=== PATIENT | female | born 1955 | race Caucasian/White ===

== ENCOUNTER 2025-04-08 10:02 | Day surgery (SDC) | payer MEDICARE ==
[~2025-04-08] VITALS: Ht 147.3 cm; Wt 67.0 kg
[~2025-04-08 10:02] MED LIST: BENADRYL25 MG PO; CALCIUM-MAGNES1 EA10 PO; CALCIUM500 MG PO; CEFAZOLIN SODIUM 2 GM/20 ML SYR IV SCH; CELEBREX200 MG PO; CITRUCEL POWDE454 GM PO; IBLOOD GLUCOSE TEST STRIP 1 EA TEST VI PRN; LACTATED RINGER'S 1,000 ML IV SCH; LIDOCAINE HCL 1% 5 ML SDV INJ ONE; LORATADINE10 MG PO; MULTIVITAMINS1 EAC8 PO; OMEPRAZOLE20 MG PO
[2025-04-08 10:17] VITALS: BP 118/58
[2025-04-08] MEDS ORDERED: LIDOCAINE HCL 2% 5 ML SDV ONE (10:31)
--- NOTE | 2025-04-08 11:39 | NUR ---
04/08/[address] PRESENTS TO PATIENT'S BEDSIDE AND HE IS SPEAKING WITH HER. HER QUESTIONS ARE ANSWERED. OXYGEN SATURATION REMAINS 100% ON 6L VIA MASK. PATIENT FOLLOWS INSTRUCTIONS TO LIFT HEAD FROM PILLOW. OXYGEN MASK IS REMOVED AND OXYGEN IS DISCONTINUED.
[2025-04-08 12:01] VITALS: BP 124/62
--- NOTE | 2025-04-09 13:47 | OR ---
[facility] [address], [place] [address] Signed DATE OF OPERATION: 04/08/2025 SURGEON: Mac Jacobo MD PREOPERATIVE DIAGNOSIS: Colon surveillance. Last colonoscopy 2018, normal; polyps x2, 2007. POSTOPERATIVE DIAGNOSES: Hyperplastic appearing polyp of sigmoid and flat adenomatous polyp of cecum. PROCEDURES: Total colonoscopy to cecum with cold snare polypectomy x1 and cold morcellation polypectomy x1. ANESTHESIA: Intravenous sedation, propofol, Alvaro Price, FOOD COOKING MACHINE OPERATOR. INDICATION: This 69-year-old white woman is a patient of Dr. Kia Oliva of [place], [place] and last underwent colonoscopy in 2018, seven years ago and noted to have no findings at that time. The previous colonoscopy included polyps x2 in 2006, a normal colonoscopy in 2008. She had an underlying history of progressive ankylosing spondylitis. A hyperplastic polyp was noted in 2018 of the rectum. She has no current symptoms of bleeding, diarrhea, or constipation. She is now to undergo surveillance colonoscopy, understanding the risk of bleeding, infection, and perforation. FINDINGS: The prep was good. Complete colonoscopy was undertaken of the cecum without question. Preoperative antibiotic Ancef had been given. Complete colonoscopy was undertaken of the cecum with full intubation of the cecum. There was a small flat polyp of the cecum, which was subtle, but real and almost certainly adenomatous. It was excised completely with cold snare technique. There is another small polyp in the sigmoid, which is likely hyperplastic. Remaining colon otherwise was normal. DESCRIPTION OF PROCEDURE: The patient was brought to the endoscopy suite, placed in lateral decubitus position. She was given preoperative antibiotic Ancef based on joint replacement history. Intravenous sedation was induced with propofol infusional technique with full cardiopulmonary monitoring by the school psychologist. Digital rectal examination was normal. Electronically Signed By: MAC JACOBO MD 04/09/25 1347 PATIENT NAME: ANSUHL ZAMUDIO OPERATIVE REPORT DATE OF : 57 REPORT #: [id number] PHYSICIAN: MAC JACOBO MD PCP: KIA OLIVA PA-C REPORT IS CONFIDENTIAL AND NOT TO BE RELEASED WITHOUT AUTHORIZATION [facility] [address], [place] [address] Signed An Olympus video colonoscope was passed in the rectum and manipulated throughout the colon ultimately intubating the cecum itself. The appendiceal orifice and ileocecal valve was normal. There was a small rather subtle flat polyp of the cecum, which was more easily visualized with narrow band imaging. This was excised with cold snare technique and additional biopsies with cold morcellation technique. Withdrawal of the scope from that point showed no sign of other abnormality until the sigmoid where a small hyperplastic polyp was noted, which was excised with cold morcellation technique. Further withdrawal allowed for retroflexed view of the rectum, which was normal. The scope was removed. The patient was taken to the recovery room in good condition. CONCLUDING DIAGNOSIS: Polyps x2. PLAN: Recommend repeat colonoscopy in 7-10 years based on current guidelines. She will return to the ongoing care of Kia Oliva or person assuming that practice patient population. MD KENTON Cope/GILDA /[id number] cc: Kia Oliva PA-C Copies: ~ Electronically Signed By: MAC JACOBO MD 04/09/25 1347 PATIENT NAME: ANSHUL ZAMUDIO OPERATIVE REPORT DATE OF : 57 REPORT #: [id number] PHYSICIAN: MAC JACOBO MD PCP: KIA OLIVA PA-C REPORT IS CONFIDENTIAL AND NOT TO BE RELEASED WITHOUT AUTHORIZATION
--- NOTE | 2025-04-11 08:10 | PATH ---
[facility] [address] [place], [place] [address] Signed SPECIMEN(S): A CECUM POLYP SPECIMEN(S): B SIGMOID POLYP SPECIMEN SOURCE: A. CECUM POLYP B. SIGMOID POLYP CLINICAL HISTORY: History of colon polyps. Post-polyp x 2 A/B) polyp FINAL PATHOLOGIC DIAGNOSIS: A. Cecal polyp: - Sessile serrated adenoma. - No dysplasia or malignancy identified. B. Sigmoid colon polyp: - Sessile serrated adenoma. - No dysplasia or malignancy identified. [facility] MICROSCOPIC EXAMINATION: Histologic sections of all submitted blocks are examined by light microscopy. These findings, together with the gross examination, support the pathologic diagnosis. GROSS DESCRIPTION: A. The specimen, labeled and designated "Tank, cecum polyp," is received in formalin and consists of four gutierrez soft tissue fragments, ranging from 0.1-0.6 cm. Entirely submitted in (A1). B. The specimen, labeled and designated "Tank, sigmoid polyp," is received in formalin and consists of three gutierrez soft tissue fragments, ranging from 0.1-0.3 cm. Entirely submitted in (B1). AB (under the direct supervision of a pathologist) The Gross Description was prepared using a voice recognition system. The report was reviewed for accuracy; however, sound-alike word errors, addition and/or deletions may occur. If there is any question about this report, please contact Client Services. ADDITIONAL NOTES: Immunohistochemical and/or in situ hybridization studies if performed in this case included appropriate positive controls that reacted as expected. This PATIENT NAME: ANSHUL ZAMUDIO PATHOLOGY DATE OF : 57 REPORT #: [id number] PHYSICIAN: KHOI ROJAS PCP: KIA OLIVA PA-C REPORT IS CONFIDENTIAL AND NOT TO BE RELEASED WITHOUT AUTHORIZATION [address] [address] Signed test was developed and its performance characteristics determined by [facility]. It has not been cleared or approved by the U.S. Food and Drug Administration. The FDA has determined that such clearance or approval is not necessary. This test is used for clinical purposes. It should not be regarded as investigational or for research. [facility] is certified under the Clinical Laboratory Improvement Amendments of 1988 (CLIA) as qualified to perform high complexity clinical laboratory testing. PERFORMING LABORATORY: Technical component was performed by [facility], [address] [place] [id number] (CLIA# [id number]). Professional interpretation was performed by [facility] - [facility], [address] [place] [id number] (CLIA#: [id number]). Diagnostician: Candido Baca MD Pathologist Electronically Signed 04/11/2025 Copies: ~ PATIENT NAME: ANSHUL ZAMUDIO PATHOLOGY DATE OF : 57 REPORT #: [id number] PHYSICIAN: KHOI PATHOLOGY PCP: KIA OLIVA PA-C REPORT IS CONFIDENTIAL AND NOT TO BE RELEASED WITHOUT AUTHORIZATION
== END 2025-04-08 12:10 | disposition home or self-care (01) ==
LOC: DS 10:02
PROVIDERS: ATTEND Surgery
PROC: 0DBN8ZZ Excision of Sigmoid Colon, Via Natural or Artificial Opening Endoscopic (ICD-10-PCS; 2025-04-08)
PROC: 0DBH8ZZ Excision of Cecum, Via Natural or Artificial Opening Endoscopic (ICD-10-PCS; principal; 2025-04-08 11:00)
DX: Z12.11 Encounter for screening for malignant neoplasm of colon (principal); D12.0 Benign neoplasm of cecum; D12.5 Benign neoplasm of sigmoid colon; M45.1 Ankylosing spondylitis of occipito-atlanto-axial region; Z86.0102 Personal history of hyperplastic colon polyps; Z87.19 Personal history of other diseases of the digestive system; Z88.0 Allergy status to penicillin; Z88.1 Allergy status to other antibiotic agents; Z88.5 Allergy status to narcotic agent
CPT/HCPCS: 00811; 88305; J0690; J2003; J2704; J7121